=== PATIENT | male | born 1985 | race American Indian/Alaskan Native ===

== ENCOUNTER 2019-03-18 10:57 | Emergency (ER) | payer SELFPAY ==
--- NOTE | 2019-03-18 11:08 | Emergency Department Report ---
Blank Doc - Documentation Documentation: This is a 33-year-old male that presents with frontal sinus pain. This initial assessment/diagnostic orders/clinical plan/treatment(s) is/are subject to change based on patient's health status, clinical progression and re- assessment by fellow clinical providers in the ED. Further treatment and workup at subsequent clinical providers discretion. Patient/guardians urged not to elope from the ED as their condition may be serious if not clinically assessed and managed. Initial orders include: 1- Patient sent to [facility] for further evaluation and treatment
[2019-03-18 11:09] VITALS: BP 117/73
--- NOTE | 2019-03-18 11:52 | Emergency Department Report ---
ED Headache HPI - General Chief Complaint: Headache Stated Complaint: HEAD PAIN Time Seen by Provider: 03/18/19 11:07 Source: patient - History of Present Illness Initial Comments: Patient is admitted to his old male with no significant past medical history. Patient presented to the ER complaining of headache for approximately one month now. Patient stated that he feel pressure behind his eyes. Patient stated that he was seen in another ER and he was diagnosed with sinusitis and given amoxicillin for 10 days but no improvement. Patient denied any fever or chills. No nausea vomiting. Patient also denied any weakness, numbness or tingling sensation. No neck pain or neck rigidity. Quality: moderate, constant Head Injury Location: frontal Recent Head Trauma: no recent headache/trauma Allergies/Adverse Reactions: Allergies No Known Allergies Allergy (Verified 06/28/14 12:18) Home Medications: Ambulatory Orders HYDROcodone/APAP 10-325 [[place] 10-325 mg TAB] 1 each PO Q6HR PRN #20 tablet 06/28/14 Meclizine [Antivert] 25 mg PO Q8H PRN #30 tablet 06/28/14 Prednisone [Prednisone 10 mg (6-Day Pack, 21 Tabs)] 10 mg PO .TAPER #1 tab.ds.pk 06/28/14 ED Review of Systems ROS: Stated complaint: HEAD PAIN Other details as noted in HPI Comment: All other systems reviewed and negative Constitutional: denies: chills, fever Respiratory: denies: cough, orthopnea, shortness of breath, SOB with exertion, SOB at rest Cardiovascular: denies: chest pain, palpitations Gastrointestinal: denies: abdominal pain, nausea, vomiting, diarrhea, constipation, hematemesis Musculoskeletal: denies: back pain Neurological: headache. denies: weakness, numbness, paresthesias, confusion, abnormal gait ED Past Medical Hx - Past Medical History Previous Medical History?: No - Surgical History Past Surgical History?: No - Social History Smoking Status: Never Smoker Substance Use Type: None - Medications Home Medications: Home Medications Medication Instructions Recorded Confirmed Last Taken Type HYDROcodone/APAP 10-325 [[place] 1 each PO Q6HR PRN #20 tablet 06/28/14 Unknown Rx 10-325 mg TAB] Meclizine [Antivert] 25 mg PO Q8H PRN #30 tablet 06/28/14 Unknown Rx Prednisone [Prednisone 10 mg 10 mg PO .TAPER #1 tab.ds.pk 06/28/14 Unknown Rx (6-Day Pack, 21 Tabs)] ED Physical Exam - General Limitations: No Limitations General appearance: alert, in no apparent distress - Head Head exam: Present: atraumatic, normocephalic, normal inspection - Eye Eye exam: Present: normal appearance, PERRL - ENT ENT exam: Present: normal exam, normal orophraynx, mucous membranes moist - Neck Neck exam: Present: normal inspection, full ROM. Absent: tenderness, meningismus, lymphadenopathy, thyromegaly - Respiratory Respiratory exam: Present: normal lung sounds bilaterally - Cardiovascular Cardiovascular Exam: Present: regular rate, normal rhythm, normal heart sounds - GI/Abdominal GI/Abdominal exam: Present: soft, normal bowel sounds. Absent: distended, tenderness, guarding, rebound, rigid, organomegaly, mass, bruit - Extremities Exam Extremities exam: Present: normal inspection, full ROM, normal capillary refill - Back Exam Back exam: Present: normal inspection, full ROM. Absent: CVA tenderness (R), CVA tenderness (L), muscle spasm, paraspinal tenderness, vertebral tenderness - Neurological Exam Neurological exam: Present: alert, oriented X3, CN II-XII intact, normal gait, reflexes normal - Skin Skin exam: Present: warm, intact, normal color ED Course Vital Signs 03/18/19 11:07 Temperature 98.5 F Pulse Rate 73 Respiratory 16 Rate Blood Pressure 117/73 O2 Sat by Pulse 98 Oximetry ED Medical Decision Making - Radiology Data Radiology results: report reviewed CT brain is negative for acute finding. - Medical Decision Making Patient is admitted to his old male with no significant past medical history. Patient presented to the ER complaining of headache for approximately one month now. Patient stated that he feel pressure behind his eyes. Patient stated that he was seen in another ER and he was diagnosed with sinusitis and given amoxicillin for 10 days but no improvement. Patient denied any fever or chills. No nausea vomiting. Patient also denied any weakness, numbness or tingling sensation. No neck pain or neck rigidity. Patient CT scan is negative with no acute finding. Patient symptoms is mostly related to sinusitis. I also advised patient to follow up with his primary care physician for possible ophthalmology referral. I will give patient Augmentin for 10 days with Flonase. Advised patient to return to the ER if symptoms are not improved. Critical care attestation.: If time is entered above; I have spent that time in minutes in the direct care of this critically ill patient, excluding procedure time. ED Disposition Clinical Impression: Headache, Sinusitis Disposition: TO HOME OR SELFCARE Is pt being admited?: No Condition: Stable Instructions: Acute Headache (ED), Sinusitis (ED) Referrals: [facility] [Other] - 3-5 Days
--- NOTE | 2019-03-18 12:30 | Cat Scan Report ---
CT HEAD WITHOUT CONTRAST: HISTORY: Headache. TECHNIQUE: Sequential 2.5mm CT images. COMPARISON: none. FINDINGS: Cerebral Parenchyma: Within normal limits. Cerebellum: Within normal limits. Brainstem: Within normal limits. Ventricles: Normal. Sella: Normal. Extra-axial spaces: Normal. Basal Cisterns: Normal. Intracranial Hemorrhage: None. Midline Shift: None. Calvarium: Normal. Sinuses: Normal. Mastoid Air Cells: Normal. Visualized Orbits: Normal. IMPRESSION: Cranial CT scan within normal limits.
== END 2019-03-18 13:16 | disposition home or self-care (01) ==
LOC: ED 10:57
DX: J32.9 Chronic sinusitis, unspecified (principal)
CPT/HCPCS: 70450